=== PATIENT | female | born 1960 | race American Indian/Alaskan Native ===

== ENCOUNTER 2017-04-04 07:09 | Day surgery (SDC) | payer OTHER ==
[2017-04-04 07:58] LABS: Hematocrit 39.5 % (30.3-42.9); Hemoglobin 13.5 gm/dl (10.1-14.3); Mean Corpuscular HGB Conc 34 % (30-34); Mean Corpuscular Hemoglobin 31 pg (28-32); Mean Corpuscular Volume 92 fl (79-97); Platelet Count 278 K/mm3 (140-440); Red Blood Count 4.28 M/mm3 (3.65-5.03); Red Cell Distribution Width 15.3 % (13.2-15.2)
[2017-04-04] MEDS ORDERED: ECOTRIN PO ONE (08:00)
[2017-04-04] MEDS ORDERED: NACL 0.9% 500 ML 500 ML IV SCH (08:00)
[2017-04-04 08:18] LABS: INR 0.88 (0.87-1.13)
[2017-04-04 08:26] LABS: Anion Gap 14 mmol/L; BUN/Creatinine Ratio 16.25; Blood Urea Nitrogen 13 mg/dL (7-17); Calcium 9.2 mg/dL (8.4-10.2); Carbon Dioxide 28 mmol/L (22-30); Chloride 100.9 mmol/L (98-107); Glucose 81 mg/dL (65-100); Potassium 4.2 mmol/L (3.6-5.0); Sodium 139 mmol/L (137-145)
[2017-04-04 08:54] LABS: Basophils % (Manual) 0 % (0.0-1.8); Blastocytes % (Manual) 0 %
[2017-04-04 08:55] LABS: Anisocytosis 1+; Diff Status Complete; Platelet Estimate Cons
[2017-04-04] MEDS ORDERED: HEPARIN 10,000 UNITS/10 ML ONE (08:55)
[2017-04-04] MEDS ORDERED: CALAN ONE (08:55)
[2017-04-04] MEDS ORDERED: HEPARIN/NS 5000 UNIT/500ML(CATH LAB) 1,000 ML IR ONE (08:55)
[2017-04-04] MEDS ORDERED: NITROGLYCERIN SYRINGE 3 ML ONE (08:55)
[2017-04-04] MEDS ORDERED: XYLOCAINE 2% INFILTRATI ONE (08:55)
[2017-04-04] MEDS: VERSED ONE ×2 (09:32→09:38)
[2017-04-04] MEDS: SUBLIMAZE ONE ×2 (09:32→09:39)
--- NOTE | 2017-04-04 11:35 | Short Stay Summary ---
Short Stay Documentation Date of service: 04/04/17 - History H&P: obtained from office - Allergies and Medications Current Medications: Allergies No Known Allergies Allergy (Unverified 04/04/17 07:10) Home Medications Medication Instructions Recorded Confirmed Last Taken Type Ibuprofen [Motrin] 800 mg PO Q8HR PRN 04/04/17 04/04/17 04/03/17 History Multivit with Calcium,Iron,Min 1 tab PO DAILY 04/04/17 04/04/17 04/03/17 History [Multiple Vitamins For Women] Zolpidem [Ambien] 10 mg PO QHS 04/04/17 04/04/17 1 Month Ago History traMADol [Ultram] 50 mg PO Q6HR PRN 04/04/17 04/04/17 Unknown History Active Medications Sodium Chloride (Nacl 0.9% 500 Ml) 500 mls @ 50 mls/hr IV DIRECT FAIZAN Stop: 04/04/17 17:59 Last Admin: 04/04/17 08:30 Dose: 50 mls/hr - Brief post op/procedure progress note Date of procedure: 04/04/17 Pre-op diagnosis: chest pain Post-op diagnosis: same Procedure: [facility] - see cath report Anesthesia: local Estimated blood loss: none Pathology: none Condition: stable - Disposition Condition at discharge: Stable Disposition: DC-01 TO HOME OR SELFCARE - Discharge Diagnoses (1) Abnormal stress test Status: Chronic (2) Tobacco use Status: Chronic Short Stay Discharge Plan Activity: advance as tolerated Diet: regular Follow up with: DALJIT CASTREJON MD [Primary Care Provider] - 7 Days DEYSI ARSHAD MD [Staff Physician] - 7 Days
[2017-04-04 13:50] VITALS: BP 113/68
--- NOTE | 2017-04-04 14:43 | Cardiac Catherization Report ---
CARDIAC CATHETERIZATION REPORT INDICATION FOR PROCEDURE: The patient is a 56-year-old female with history of smoking and atypical chest pains, has abnormal stress EKG with inferolateral ischemia. Because of chest pains and abnormal stress EKG, she was scheduled for cardiac catheterization for definitive diagnosis and treatment. The patient is aware of the procedure, potential complications and alternatives of therapy available. The patient had some surgery done in the right wrist recently that was 2 weeks ago; however, this healed well and good radial pulse was noted, hence access will be obtained from radial artery. DESCRIPTION OF PROCEDURE: The patient was brought to the catheterization laboratory in a fasting condition. The right wrist area and forearm thoroughly cleansed with Betadine solution. Sterile drapes were applied. Local anesthesia was achieved using 2% Xylocaine. Right radial arterial puncture was made using 21-gauge arterial puncture needle. Subsequently, a 6-Spanish sheath was introduced. A 5-Spanish multipurpose catheter was used to obtain the left coronary angiograms in multiple views followed by right coronary angiograms and left ventriculogram done in MATSON projection using hand injection. At the end of the procedure, catheter and sheath were removed. Good hemostasis was achieved with pressure bandage. Following findings were noted. HEMODYNAMICS: 1. Opening aortic pressure 154/87, left ventricular pressure 145/7. No gradient across the aortic valve. Estimated ejection fraction 65%. 2. Left ventriculogram done in MATSON projection showed normal sized left ventricle with normal contractility. Only limited amount of dye was injected. 3. Right coronary artery nondominant vessel small, angiographically smooth and normal arising normally 4. Left coronary cusp. Left coronary artery arises normally from left coronary cusp. Left main is smooth and normal. LAD is very tortuous; however, curves around the apex are angiographically smooth and normal. Diagonal branch without significant disease. 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 This is around it measuring 3-4 mm in size. Circumflex artery dominant vessel without significant disease. Angiographically smooth and normal. FINAL IMPRESSION: 1. Normal sized left ventricle with excellent contractility. 2. Essentially normal coronary anatomy with very tortuous arteries. 3. 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 At this time, no significant coronary artery disease was documented. Discussed with the patient about the risk factor modification. I explained the findings with the patient. The patient tolerated the procedure well. No untoward complications were noted. JOB# [id number] LAKEISHA/DOE
== END 2017-04-04 14:20 | disposition home or self-care (01) ==
LOC: CATHLABREC 07:09
PROVIDERS: ATTEND Internal Medicine
DX: I25.41 Coronary artery aneurysm (principal); F17.210 Nicotine dependence, cigarettes, uncomplicated; F14.90 Cocaine use, unspecified, uncomplicated; Z72.89 Other problems related to lifestyle; Z98.890 Other specified postprocedural states
CPT/HCPCS: 36415; 80048; 85007; 85025; 85610; 85730; 93005; 93010; 93458; C1894; J1644; J2250; J3010; J7040; Q9967